=== PATIENT | male | born 1955 | race Caucasian/White ===

== ENCOUNTER → 2017-08-05 | Outpatient (CLI) | payer OTHER | END | disposition home or self-care (01) | LOC: LAB.O 10:27 | PROVIDERS: ATTEND Family Medicine | DX: R43.9 Unspecified disturbances of smell and taste (principal) ==

== ENCOUNTER → 2018-08-29 | Outpatient (CLI) | payer BC | LOC: GMAE 11:06 | PROVIDERS: ATTEND Family Medicine | DX: Z00.00 Encounter for general adult medical examination without abnormal findings (principal); Z11.59 Encounter for screening for other viral diseases; R20.2 Paresthesia of skin ==

== ENCOUNTER 2018-09-19 05:39 | Day surgery (SDC) | payer BC ==
[2018-09-19] MEDS ORDERED: LACTATED RINGERS 1,000 ML ONE (06:58)
[2018-09-19] MEDS ORDERED: LIDOCAINE 1% 10 ML VIAL INJ ONE (07:00)
[2018-09-19] MEDS ORDERED: PROPOFOL 200 MG/20 ML VIAL IV ONE (07:00)
[2018-09-19] MEDS ORDERED: LACTATED RINGERS 1,000 ML BAG IV ONE (07:10)
[2018-09-19] MEDS ORDERED: MIDAZOLAM INJ 2 MG/2 ML VIAL ONE (07:20)
[2018-09-19] MEDS ORDERED: fentaNYL CITRATE INJ 50 MCG/ML AMP ONE (07:20)
[2018-09-19] MEDS ORDERED: ELECTROLYTE-A 1,000 ML IVS ONE (08:08)
[2018-09-19 09:42] VITALS: BP 107/63; TEMP 97; O2SAT 98
--- NOTE | 2018-09-22 08:22 | OP ---
DATE OF PROCEDURE: 09/19/18 PREOPERATIVE DIAGNOSIS: 1. Screening for colorectal cancer. POSTOPERATIVE DIAGNOSIS: 1. Mild internal hemorrhoids. 2. Otherwise, normal colonoscopy. PROCEDURE PERFORMED: 1. Colonoscopy. ENDOSCOPIST: Nasreen Raza MD ANESTHESIA: Monitored anesthesia care. PREPARATION: [place] Bowel Prep Score 3/3/3, total of 9. COMPLICATIONS: None. INDICATION: No gastrointestinal symptoms. In need of screening for colorectal cancer. PROCEDURE IN DETAIL: Physical examination was performed and the patient was counseled regarding the major risks and benefits associated with the procedure. The patient verbalized understanding and agreement with the same and all questions were answered to the patient's satisfaction. After adequate sedation was achieved by the nurse ski top trimmer, the patient was placed in the left lateral decubitus position and a digital rectal exam was performed. This examination was within normal limits. Flexible adult colonoscope was then lubricated, inserted into the rectum, and advanced under direct visualization to the level of the cecum, which was identified by both visual and anatomic landmarks. A photograph was taken of the appendiceal orifice. The scope was then fully withdrawn while carefully examining the mucosa from the cecum to the anal canal. Of note, at about 50 cm from full extraction, the suction channel of the colonoscope ceased to function. Multiple attempts were made to remedy this including changing the suction button and flushing the suction channel without results. The entire colonoscope was then removed. A new colonoscope was obtained and it was advanced to the same area of the colon, the same depth and the same visual landmarks. The procedure was continued. After the scope was fully withdrawn, there were no complications whatsoever. The colonic mucosa appeared to be within normal limits. Rectal retroflexion revealed mild internal hemorrhoids. The colonoscope was completely retrieved upon exiting the anal canal and the procedure was terminated. The patient tolerated the procedure well without immediate complications and was transferred to the Recovery Room in stable condition. RECOMMENDATION: 1. Repeat colonoscopy in 10 years or sooner if clinically indicated. 2. Followup in my clinic as needed for any issues. #[id number] MTDD
== END 2018-09-19 09:35 | disposition home or self-care (01) ==
LOC: AMB 05:39
PROVIDERS: ATTEND Family Medicine
DX: Z12.11 Encounter for screening for malignant neoplasm of colon (principal); K64.8 Other hemorrhoids; G47.00 Insomnia, unspecified; Z88.0 Allergy status to penicillin; Z79.899 Other long term (current) drug therapy
CPT/HCPCS: 00812; 45378; J2250; J3010; J3490; J7120

== ENCOUNTER → 2019-12-14 | Outpatient (CLI) | payer BC | LOC: GMAE 16:56 | PROVIDERS: ATTEND Family Medicine | DX: E53.8 Deficiency of other specified B group vitamins (principal); F51.01 Primary insomnia ==

== ENCOUNTER → 2020-06-18 | Outpatient (CLI) | payer BC | LOC: GMAE 10:33 | PROVIDERS: ATTEND Family Medicine | DX: Z00.00 Encounter for general adult medical examination without abnormal findings (principal) ==